=== PATIENT | male | born 1950 | race Caucasian/White ===

== ENCOUNTER 2017-01-10 10:44 | Emergency (ER) | payer MEDICARE, BC ==
--- NOTE | 2017-01-18 09:43 | ER ---
ADMIT: 01/10/2017 RM/LOC: ER [facility] MR#: [id number] [address] [facility] [address] [place] [id number] KALYAN CIFUENTES I [address] [place] [id number] Emergency Room Report SEX: M AGE: 66 : 1950 DATE: 01/10/2017 ADDENDUM: CHIEF COMPLAINT: Dizziness. HISTORY OF PRESENT ILLNESS: This is a 66-year-old male who was going out to get the newspaper, he bent over and stood up, and he just felt very dizzy. His ears were ringing. He has had similar symptoms when he had a previous UTI, so he is concerned that this could be the issue. On labs, his urine was actually clear except for 12 red blood cells. CBC was normal. CMP was normal except for a slightly low GFR of 77, calcium slightly elevated at 10.5. His troponin, BNP, and TSH are all normal. EKG showed sinus azael at a rate of 46. He said he does have a history of having this before, in fact he has had a Holter monitor in the past and they did not see any events. Today, he does feel a little bit better after just sitting in the emergency room. I am sending him home with a Holter monitor again just to see if there is anything that happens at this time. CLINICAL IMPRESSION: Dizziness, improved in the ER. DISPOSITION: Stable at discharge, will follow up with Dr. Rice after Holter monitor removed. CARSON Sanders / Juan Luis Ortiz MD / es JOB #: [id number] CC: Juan Luis Ortiz MD, Attending Physician Stanford Rice MD, Family Physician
== END 2017-01-10 14:10 | disposition home or self-care (01) ==
LOC: ER 10:44
DX: R42 Dizziness and giddiness (principal); R00.1 Bradycardia, unspecified; F17.210 Nicotine dependence, cigarettes, uncomplicated; F32.9 Major depressive disorder, single episode, unspecified; E78.5 Hyperlipidemia, unspecified; F41.0 Panic disorder [episodic paroxysmal anxiety]; Z88.6 Allergy status to analgesic agent; Z79.899 Other long term (current) drug therapy